=== PATIENT | male | born 1960 | race African-American/Black ===

== ENCOUNTER 2021-05-09 10:29 | Emergency (ER) | payer BC, OTHER | END 2021-05-09 11:04 | disposition home or self-care (01) | LOC: CSHERS 10:29 | DX: M79.10 Myalgia, unspecified site (principal); I10 Essential (primary) hypertension; F17.210 Nicotine dependence, cigarettes, uncomplicated | CPT/HCPCS: 99283 ==

== ENCOUNTER 2021-05-16 08:04 | Outpatient (CLI) | payer BC | END 2021-05-16 08:05 | disposition home or self-care (01) | LOC: CSHRAD 08:04 | PROVIDERS: ATTEND Family Medicine | DX: M53.3 Sacrococcygeal disorders, not elsewhere classified (principal); M25.512 Pain in left shoulder; M25.552 Pain in left hip; M54.2 Cervicalgia; M47.812 Spondylosis without myelopathy or radiculopathy, cervical region | CPT/HCPCS: 72040; 72220 ==

== ENCOUNTER → 2024-11-06 | Emergency (ER) | payer MEDICARE, MEDICAID ==
[~2024-11-06] MED LIST: LOKELMA 10 GM PACKET PO SCH; Sodium Bicarb 50 MEQ/50 ML Abboject 8.4% SYRINGE ONE; Sodium Bicarbonate 150 MEQ in Dextrose 5% in Water 1,000 ML IV SCH; cefTRIAXone (ROCEPHIN) 2 GM VIAL ONE
[2024-11-06 12:40] LABS: #Basophils 0.09 10x3/uL (0.0-0.2); #Eosinophils 0.37 10x3/uL (0.0-0.5); #Monocytes 0.66 10x3/uL (0.0-1.1); #Neutrophils 3.97 10x3/uL (1.5-8.4); %Basophils 1.4 % (0.0-2.0); %Eosinophils 5.6 % (0.0-6.0); %Lymphocytes 22.5 % (18.0-47.0); %Neutrophils 60.2 % (40.0-75.0); Hematocrit 33.4 % (38.8-50.0); Hemoglobin 11.1 g/dL (13.5-17.5); Mean Corpuscular HGB CONC 33.2 g/dL (32.0-36.0); Mean Corpuscular Hemoglobin 29.4 pg (27.0-33.0); Mean Corpuscular Volume 88.6 fL (81.2-95.1); Mean Platelet Volume 8.8 fL (7.4-10.4); Platelet Count 482 10x3/uL (150-450); RBC Distribution Width 14.4 % (11.5-14.5); Red Blood Cell (RBC) Count 3.77 10x6/uL (4.32-5.72); White Blood Cell (WBC) Count 6.59 10x3/uL (3.5-10.5)
[2024-11-06 13:25] LABS: ALT (SGPT) 15 U/L (Less than 45); AST (SGOT) 16 U/L (11-34); Alkaline Phosphatase 72 U/L (40-110); Anion Gap 15 mmol/L (10-20); BUN (Urea Nitrogen) 75 mg/dL (8.4-25.7); Bilirubin, Total 0.3 mg/dL (0.3-1.2); Calc. Creatinine Clearance 0 mL/min (70-130); Calcium 8.9 mg/dL (7.8-10.44); Carbon Dioxide 14 mmol/L (23-31); Chloride 109 mmol/L (98-107); Estimated GFR 10; Globulin 3.5 g/dL (2.4-3.5); Glucose 90 mg/dL (80-115); Lipase 49 U/L (8-78); Magnesium 1.9 mg/dL (1.6-2.6); Potassium 5.4 mmol/L (3.5-5.1); Protein, Total 7.5 g/dL (5.8-8.1); Sodium 133 mmol/L (136-145)
[2024-11-06 13:29] LABS: Troponin I Less than 0.010 ng/mL (< 0.028)
[2024-11-06 13:36] LABS: Bilirubin Neg (Negative); Blood, Urine 150 (Negative); Clarity Slightly Cloudy (Clear); Glucose, Urine (Dipstick) Normal (Negative); Ketone, Urine Negative (Negative); Leukocyte 500 (Negative); Nitrite Positive (Negative); Protein, Urine (Dipstick) 30 mg/dl (Neg-Trace); Urobilinogen Normal mg/dL (Less than 2)
[2024-11-06 13:45] LABS: Bacteria/HPF 4+ HPF (None Seen); CAUTI Indications for Culture Pelvic or flank pain; Squamous Epithelial 0-3 HPF (0-3); WBC/HPF Greater Than 50 HPF (0-3)
[2024-11-06 13:46] LABS: Urine Culture Reflex Yes Yes
== END ==
LOC: CSHERS 12:09
DX: N19 Unspecified kidney failure (principal); N39.0 Urinary tract infection, site not specified; E78.5 Hyperlipidemia, unspecified; E87.20 Acidosis, unspecified; I10 Essential (primary) hypertension; F17.210 Nicotine dependence, cigarettes, uncomplicated
CPT/HCPCS: 71045; 76770; 80053; 81001; 83690; 83735; 83880; 84484; 85025; 87086; 93005; J0696; J7070; 36415